=== PATIENT | female | born 1980 | race Two or more races ===

== ENCOUNTER 2020-04-23 06:33 | Day surgery (SDC) | payer OTHER | END 2020-04-23 12:15 | disposition home or self-care (01) | LOC: AMB-ENDOS 06:33 | PROVIDERS: ATTEND Surgery | DX: K63.5 Polyp of colon (principal); Z12.11 Encounter for screening for malignant neoplasm of colon; Z20.828 Contact with and (suspected) exposure to other viral communicable diseases ==

== ENCOUNTER 2020-06-08 05:39 | Day surgery (SDC) | payer OTHER ==
[2020-06-08] MEDS ORDERED: KETO10TA2 PO (12:28)
[2020-06-08] MEDS ORDERED: PERCOCET 5-3251 EACH PO (12:28)
[2020-06-08] MEDS ORDERED: NEURONTIN300 MG PO (12:29)
== END 2020-06-08 22:09 | disposition home or self-care (01) ==
LOC: CIR.AMB 05:39
PROVIDERS: ATTEND Surgery
DX: K60.1 Chronic anal fissure (principal); Z20.828 Contact with and (suspected) exposure to other viral communicable diseases